=== PATIENT | female | born 1970 | race Caucasian/White ===

== ENCOUNTER 2024-07-29 21:01 | Emergency (ER) | payer OTHER, SELFPAY ==
[2024-07-29 21:03] VITALS: BP 129/85
--- NOTE | 2024-07-29 21:51 | ED.GENMED ---
History of Present Illness
<Mikael Wilson PA-C - Last Filed: 07/31/24 10:10>
General
Chief Complaint: Abdominal Pain
Time Seen by Provider: 07/29/24 21:35
History of Present Illness
History of Present Illness:
54-year-old female with history of asthma presents to the emergency department for evaluation of persistent right lower abdominal cramping for the past 3 months. Seems to wax and wane without obvious provocation or palliation. Over the past 3 to 4
days she has noted increased upper abdominal pain and bloating as well as a sensation of fullness. Pain seems to radiate to the thoracic back as well. No fevers or chills. Prior abdominal surgery includes ovarian cystectomy.
Review of Systems
<Mikael Wilson PA-C - Last Filed: 07/31/24 10:10>
Review of Systems
Allergies reviewed?: Yes
All Other Systems: ROS reviewed and negative except as documented in HPI and ROS
Phy Exam
<MISTY Cross Last Filed: 07/31/24 10:10>
Physical Exam
Physical Exam:
GEN: Well appearing, NAD, WDWN
Eyes: PERRLA, EOMs intact, no scleral icterus
HENT: NCAT, oral mucosa moist
Lungs: CTAB, no wheezes, rales, rhonchi, normal chest wall excursion
Cardiac: RRR, no M/R/G, no peripheral edema. Radial pulses 2+ bilat
Abdomen: Soft, mild right lower quadrant tenderness, negative upper abdominal tenderness, negative Santiago sign
Neuro: AO x 3
MSK: No gross deformity or ecchymosis. No edema. No digital clubbing
Skin: No rashes, petechiae. Normal color, no pallor or jaundice.
Psych: Calm, cooperative, proper hygiene
Course
<MISTY Cross Last Filed: 07/31/24 10:10>
Orders/Labs/Results
Orders:
Orders
07/29/24 21:46
Urinalysis Reflex To Culture Urgent
Date Specimen was Collected: 07/30/24
Time Specimen was Collected: 01:03
US Pelvis Only (non-obstetric) Urgent
Comment:
Reason For Exam: R pelvic pain/cramping
07/29/24 22:03
Complete Blood Count/With Diff Urgent
Comprehensive Metabolic Panel Urgent
07/30/24 01:16
Acetaminophen [Tylenol] 650 mg PO NOW STA
Abnormal Lab Results
07/29/24 07/30/24
22:03 01:13
WBC 11.8 H 10^3/uL
(4.8-10.8)
MPV 10.7 H fL
(7.4-10.4)
Abs Immat Gran (auto) 0.1 H 10^3/uL
(0-0.05)
Absolute Neuts (auto) 8.4 H 10^3/uL
(1.4-6.5)
Absolute Monos (auto) 0.9 H 10^3/uL
(0.1-0.6)
Immature Gran % 0.6 H %
(0-0.5)
Lymphocytes % 18.9 L %
(20.5-51.1)
Urine Ketones Trace A
(Negative)
07/29/24 22:03
07/29/24 22:03
Vital Signs
Initial and Last Documented VS:
Initial Vital Signs
Temp Pulse Resp BP Pulse Ox
98.1 F 65 16 129/85 99
07/29/24 21:03 07/29/24 21:03 07/29/24 21:03 07/29/24 21:03 07/29/24 21:03
Last Documented Vital Signs
Temp Pulse Resp BP Pulse Ox
98.1 F 57 18 138/72 97
07/29/24 21:03 07/30/24 01:21 07/30/24 01:21 07/30/24 01:17 07/30/24 01:21
<Mihir Rojas, DO - Last Filed: 07/30/24 01:23>
Orders/Labs/Results
Orders:
Orders
07/29/24 21:46
Urinalysis Reflex To Culture Urgent
Date Specimen was Collected: 07/30/24
Time Specimen was Collected: 01:03
US Pelvis Only (non-obstetric) Urgent
Comment:
Reason For Exam: R pelvic pain/cramping
07/29/24 22:03
Complete Blood Count/With Diff Urgent
Comprehensive Metabolic Panel Urgent
07/30/24 01:16
Acetaminophen [Tylenol] 650 mg PO NOW STA
Abnormal Lab Results
07/29/24 07/30/24
22:03 01:13
WBC 11.8 H 10^3/uL
(4.8-10.8)
MPV 10.7 H fL
(7.4-10.4)
Abs Immat Gran (auto) 0.1 H 10^3/uL
(0-0.05)
Absolute Neuts (auto) 8.4 H 10^3/uL
(1.4-6.5)
Absolute Monos (auto) 0.9 H 10^3/uL
(0.1-0.6)
Immature Gran % 0.6 H %
(0-0.5)
Lymphocytes % 18.9 L %
(20.5-51.1)
Urine Ketones Trace A
(Negative)
07/29/24 22:03
07/29/24 22:03
Vital Signs
Initial and Last Documented VS:
Initial Vital Signs
Temp Pulse Resp BP Pulse Ox
98.1 F 65 16 129/85 99
07/29/24 21:03 07/29/24 21:03 07/29/24 21:03 07/29/24 21:03 07/29/24 21:03
Last Documented Vital Signs
Temp Pulse Resp BP Pulse Ox
98.1 F 57 18 138/72 97
07/29/24 21:03 07/30/24 01:21 07/30/24 01:21 07/30/24 01:17 07/30/24 01:21
<Mikael Wilson PA-C - Last Filed: 07/31/24 10:10>
MDM/Problems Addressed
MDM/Problems Addressed:
Will send for ultrasound to evaluate for gynecologic abnormality given the persistent right lower abdominal/pelvic pain for the past 3 months. In regards to her upper pain this does have characteristics that sound as though biliary colic could be
the issue however she has no tenderness on exam and normal LFTs thus I do not see any indication for gallbladder ultrasound at this time. Will send for pelvic ultrasound, signed out to Dr. Rojas pending ultrasound results
<Mikael Wilson PA-C - Last Filed: 07/31/24 10:10>
*Critical Care Note
Total Time (30-74mins, 75-104mins- exclusive of procedures): Not Applicable
<Mihir Rojas DO - Last Filed: 07/30/24 01:23>
Update Note
Update Note:
Ultrasound pelvis
IMPRESSION:
Normal uterus. Endometrium measures 7 mm.
Mildly enlarged right ovary, volume 23.7 mL containing simple 3.1 x 1.6 x 2.7 cm cyst. Nonenlarged left ovary. Normal ovarian venous and arterial waveforms bilaterally. Despite normal waveforms in an enlarged ovary, ultrasound imaging has
decreased sensitivity for intermittent or partial torsion. If there is persistent clinical suspicion for torsion, consider [employer] consultation.
ED Attending Note
<Mikael Wilson PA-C - Last Filed: 07/31/24 10:10>
-
Portions of this chart may have been created with voice recognition software.� Occasional wrong word or��sound alike� substitutions may have occurred due to the inherent limitations of voice recognition software.
<Mihir Rojas, - Last Filed: 07/30/24 01:23>
ED Attending Note
Patient seen and examined by attending physician: Yes
I performed the substantive portion of visit, reviewed & personally made and approve the management plan that is documented in note by myself or JAISON.: Yes
ED Attending Note:
54-year-old female with right lower quadrant abdominal pain. This pain has been present for the last 3 months. She does have a history of ovarian cysts. Recently she has had upper abdominal pain. Patient has had a cystectomy in the past.
Currently patient is pain-free. Patient seen in conjunction with the PA. I have reviewed and agree with his history and treatment plan. On my independent physical exam patient is awake alert and oriented x 3, in absolutely no acute distress other
than a slight left-sided headache for which we gave her Tylenol. She has no tenderness to palpation in the right lower quadrant. Negative rigidity. Negative McBurney's point tenderness. Negative Santiago sign in the right upper quadrant. I did
discuss ultrasound findings with patient. We did discuss intermittent ovarian torsion. We discussed the signs and symptoms to look out for. Patient will follow-up with her [employer] who is located at an outside hospital. In the meantime if her pain
returns or persists she will return to the emergency department for repeat imaging and possible further testing. I feel that she has good understanding of discharge instructions. She is being discharged in improved condition. She has no further
questions. She is with her significant other who was also present for this conversation.
Discharge Plan
Departure
Patient Disposition: Home (Routine Discharge)
Date of Disposition: 07/30/24
Time of Disposition: 01:22
Patient with high blood pressure during this ER visit?: Yes
Condition: Good
Discharge Problem:
Right lower quadrant abdominal pain
Instructions: Ovarian Cyst (DC), Abdominal Pain, BLOOD PRESSURE
Referrals:
Gorge Neil MD [Active] -
Shell Mullen MD [Family Provider] -
Activity Restrictions/Additional Instructions:
Your more recent upper abdominal pain may reflect gallbladder pain. At this time there are no symptoms suggestive of a gallbladder infection. If symptoms persist, particularly after fatty meals, please consider follow up with the listed surgeon, or
discuss obtaining an ultrasound of your gallbladder with your primary care physician
Also, please follow-up with your [employer] to reevaluate your right pelvic pain. Should your symptoms return or worsen, please return to the emergency department as discussed.
It was a pleasure meeting you and taking part in your care. We hope for your continued healing and wellness.
Please read discharge instructions in their entirety. However, they are for general education and may not describe your exact diagnosis at discharge. Information on your ER visit and medical conditions were discussed with you along with appropriate
follow up information...
If indicated, please take your medications as instructed and indicated on discharge paperwork.
Please schedule a follow up appointment as directed. Call to schedule an appointment
Please return to the emergency department with ANY change in, persisting, or worsening of symptoms. If any of your symptoms do not improve, or persist, or become more severe within 6-12 hours, please return to the emergency department for further
care.
Please return to the emergency department if you develop a headache, neck pain/stiffness, fever greater than 100.4F, chest pain, shortness of breath, persistent nausea, vomiting, slurred speech, difficulty walking, numbness/tingling, weakness, signs
of infection or any other symptoms that are worrisome to you.
If you have any questions or concerns please do not hesitate to call the Hospital at or E-mail me directly at [email or web address]
Interventions
Interventions:
*Risk Screen - Suicide Last Done: 07/29/24 21:03
*General Assessment Last Done: 07/30/24 01:35
*Neglect/Abuse Screening Last Done: 07/29/24 21:03
ED- Fall Risk Assessment Last Done: 07/30/24 01:35
*ED COVID-19 Vaccine History Last Done: 07/30/24 01:35
*Nursing Disposition Last Done: 07/30/24 01:35
GZ-Msiiin-Vyguvcywtm Assessment Last Done: 07/29/24 22:11
Discharge Date and Time
Discharge Date/Time: 07/30/24 01:36
Print Language: FRENCH
[2024-07-29 22:11] LABS: % Basophils 0.8 % (0-2); % Eosinophils 0.7 % (0-6); % Immature Granulocytes 0.6 % (0-0.5); % Lymphocytes 18.9 % (20.5-51.1); % Monocytes 7.9 % (1.7-9.3); % Neutrophils 71.1 % (42.2-75.2); Absolute Basophils 0.1 10^3/uL (0-0.2); Absolute Eosinophils 0.1 10^3/uL (0-0.7); Absolute Immature Granulocytes 0.1 10^3/uL (0-0.05); Absolute Lymphocytes 2.2 10^3/uL (1.2-3.4); Absolute Monocytes 0.9 10^3/uL (0.1-0.6); Absolute Neutrophils 8.4 10^3/uL (1.4-6.5); Hemoglobin 13.7 g/dL (12.0-16.0); Mean Corp Hgb Conc. 33.4 g/dL (33.0-37.0); Mean Corpuscular Hgb 29.5 pg (27.0-31.0); Mean Corpuscular Volume 88.2 fL (81.0-99.0); Mean Platelet Volume 10.7 fL (7.4-10.4); Nucleated Red Blood Cells % 0 %; Platelet Count 336 10^3/uL (130-400); Red Blood Cell Count 4.65 10^6/uL (4.20-5.40); Red Cell Dist. Width 13.2 % (11.5-14.5); White Blood Cell Count 11.8 10^3/uL (4.8-10.8)
[2024-07-29 22:24] LABS: ALT (SGPT) 25 U/L (0-35); AST (SGOT) 32 U/L (14-36); Albumin 4.4 g/dl (3.5-5.0); Alkaline Phosphatase 62 U/L (38-126); Blood Urea Nitrogen 15 mg/dl (7-17); Calcium 9.1 mg/dl (8.4-10.2); Carbon Dioxide 25 mmol/L (22-30); Chloride 103 mmol/L (98-107); Glucose 98 mg/dl (70-99); Potassium 4.1 mmol/L (3.5-5.1); Sodium 138 mmol/L (135-145); Total Bilirubin 0.4 mg/dl (0.2-1.3); Total Protein 6.9 g/dl (6.3-8.2); eGFR > 60.00
[2024-07-30 01:17] VITALS: BP 138/72
[2024-07-30] MEDS: TYLENOL 650 MG PO (01:20)
[2024-07-30 01:24] LABS: Urine Albumin Negative (Neg - Trace); Urine Bilirubin Negative (Negative); Urine Character Clear (Clear); Urine Color Yellow; Urine Glucose Negative (Negative); Urine Ketone Trace (Negative); Urine Leukocyte Negative (Negative); Urine Nitrite Negative (Negative); Urine Occult Blood Negative (Negative); Urine Urobilinogen Negative (Neg - 1+)
== END 2024-07-30 01:36 | disposition home or self-care (01) ==
LOC: EMR 21:01
PROVIDERS: Physician Assistant; EMERGENCY PHYSICIAN Emergency Medicine; FAMILY PHYSICIAN Internal Medicine
DX: R10.31 Right lower quadrant pain (principal); R14.0 Abdominal distension (gaseous); M54.6 Pain in thoracic spine; R10.2 Pelvic and perineal pain; R51.9 Headache, unspecified; R03.0 Elevated blood-pressure reading, without diagnosis of hypertension; N83.201 Unspecified ovarian cyst, right side; J45.909 Unspecified asthma, uncomplicated; Z88.0 Allergy status to penicillin
CPT/HCPCS: 99284; 76856; 80053; 81003; 85025